=== PATIENT | female | born 1965 | race Two or more races ===

== ENCOUNTER 2024-01-07 16:23 | Emergency (ER) | payer MEDICAID ==
[~2024-01-07] VITALS: Ht 167.6 cm; Wt 150.4 kg
[2024-01-07 17:36] LABS: COVID19 ANTIGEN SOFIA FIA NEGATIVE (NEGATIVE)
[2024-01-07] MEDS ORDERED: AMOX500C2 PO (18:24)
[2024-01-07] MEDS ORDERED: PRED20TA2 PO (18:24)
[2024-01-07] MEDS ORDERED: BENZ200C64 PO (18:24)
[2024-01-07] MEDS ORDERED: ALBUAER3 IN (18:24)
[2024-01-07] MEDS: IPRATROPIUM BROM 0.5 MG/2.5ML INH SOL NEB ONE (18:45)
[2024-01-07] MEDS: ALBUTEROL SULF 2.5 MG/0.5ML(0.5%) NEB SOLN NEB ONE (18:45)
[2024-01-07] MEDS: guaiFENesin-DM 100/10mg/5ml SYR PO ONE (20:35)
[2024-01-07] MEDS: DexAMETHasone SOD PHOS 10MG/1ML VIAL INJ IM ONE (20:36)
[2024-01-07] MEDS: IBUPROFEN 800 MG TAB PO ONE (20:41)
[2024-01-07 20:45] VITALS: BP 151/74; PULSE 99; RESP 20; TEMP 99.2; O2SAT 96
== END 2024-01-07 20:50 | disposition home or self-care (01) ==
LOC: ER 16:23
DX: J20.9 Acute bronchitis, unspecified (principal); J03.90 Acute tonsillitis, unspecified; Z20.822 Contact with and (suspected) exposure to COVID-19
CPT/HCPCS: 36415; 71045; 87426; 94640; 96372; 99284; J1100; J7644